=== PATIENT | male | born 1990 | race Two or more races ===

== ENCOUNTER 2019-11-19 12:39 | Emergency (ER) | payer OTHER ==
[~2019-11-19] VITALS: Ht 175.3 cm; Wt 102.0 kg
[2019-11-19 12:52] VITALS: BP 132/88
== END 2019-11-19 14:00 | disposition home or self-care (01) ==
LOC: ER 12:39
DX: U07.1 COVID-19 (principal); R19.7 Diarrhea, unspecified; R53.1 Weakness; R05 Cough
CPT/HCPCS: 87635; 99283; C9803; 99281